=== PATIENT | female | born 1955 | race Caucasian/White ===

== ENCOUNTER 2018-04-05 11:47 | Emergency (ER) | payer OTHER ==
[~2018-04-05] VITALS: Ht 162.6 cm; Wt 43.1 kg
[~2018-04-05 11:47] MED LIST: ALBU90I; AMOX500 PO
[2018-04-05] MEDS ORDERED: Prinivil10 MG PO (14:13)
[2018-04-05] MEDS ORDERED: Percocet 5-3251 EACH PO (14:13)
== END 2018-04-05 14:19 | disposition home or self-care (01) ==
LOC: ER 11:47
DX: S22.41XA Multiple fractures of ribs, right side, initial encounter for closed fracture (principal); Z88.5 Allergy status to narcotic agent; F17.200 Nicotine dependence, unspecified, uncomplicated; W10.9XXA Fall (on) (from) unspecified stairs and steps, initial encounter
CPT/HCPCS: 71101; 99283-25

== ENCOUNTER 2019-01-28 13:14 | Observation (INO) | payer OTHER ==
[~2019-01-28] VITALS: Ht 165.1 cm; Wt 40.2 kg
[~2019-01-28 13:14] MED LIST changes: +Percocet 5-3251 EACH PO; +Prinivil10 MG PO
[2019-01-28] MEDS ORDERED: ATOR20 PO (13:40)
[2019-01-28] MEDS ORDERED: LOSARTAN POTAS100 MG PO (13:40)
[2019-01-28] MEDS ORDERED: AMLO10 PO (13:41)
[2019-01-28] MEDS ORDERED: Bisoprolol Fuma10 MG PO (13:41)
[2019-01-28 13:57] LABS: BASOPHILS ABSOLUTE AUTO 0.05 K/mm3 (0.00-0.23); BASOPHILS PERCENT AUTO 1 % (0-2); EOSINOPHILS ABSOLUTE AUTO 0.03 K/mm3 (0.00-0.68); EOSINOPHILS PERCENT AUTO 1 % (0-6); Hematocrit 46.3 % (33.0-51.0); Hemoglobin 16.3 g/dL (11.5-16.0); IMMATURE GRAN ABSOLUTE AUTO 0.01 K/mm3 (0.00-0.10); IMMATURE GRAN PERCENT AUTO 0 % (0-1); LYMPHOCYTES ABSOLUTE AUTO 1.04 K/mm3 (0.84-5.20); LYMPHOCYTES PERCENT AUTO 19 % (21-46); MONOCYTES PERCENT AUTO 9 % (4-13); Mean Corpuscular HGB Conc 35.2 g/dL (31.5-36.5); Mean Corpuscular Volume 91 fL (80-100); Mean Platelet Volume 9.9 fL (9.1-12.4); NEUTROPHILS PERCENT AUTO 71 % (41-73); Platelet Count 180 K/mm3 (150-400); RDW Coefficient Variation 11.9 % (11.7-14.2); RDW Standard Deviation 39.8 fL (35.1-46.3); White Blood Cell Count 5.53 K/mm3 (4.00-11.30)
[2019-01-28 14:18] LABS: Alanine Aminotransfer (ALT/SGP 62 U/L (12-78); Albumin, Blood 4.4 g/dL (3.4-5.0); Albumin/Globulin Ratio 1.2 (0.8-1.8); Alk Phos 96 U/L (50-136); Anion Gap 9 mmol/L (6-16); Aspartate Aminotrans (AST/SGOT 43 U/L (12-37); Bilirubin, Total 0.7 mg/dL (0.1-1.0); Blood Urea Nitrogen 7 mg/dL (8-24); Bun/Creatinine Ratio 13.6 (12.0-20.0); CO2, Blood 24 mmol/L (21-32); Calcium, Blood 9.2 mg/dL (8.5-10.1); Chloride, Blood 92 mmol/L (98-108); Creatinine, Blood 0.52 mg/dL (0.40-1.00); Globulin, Blood 3.7 g/dL (2.2-4.0); Glomerular Filtration Rate >60 (60-); Glucose, Blood 128 mg/dL (70-99); Sodium, Blood 125 mmol/L (136-145); Total Protein, Blood 8.1 g/dL (6.4-8.2)
[2019-01-28 15:15] LABS: International Normalized Ratio 0.99; Prothrombin Time Results 10.5 Sec (9.7-11.5)
--- NOTE | 2019-01-28 18:47 | NUR ---
PT AOX4 AND COOPERATIVE OF CARE. PT SETTLED INTO ROOM HEPRIN RUNNING ON PUMP. CALL LIGHT WITHIN REACH. PT ABLE TO CALL APPROPRIATELY. WILL CONTINUE TO MONITOR.
--- NOTE | 2019-01-28 23:21 | NUR ---
cH PTT: 126.0, HEPARIN MANAGE BY PHARMACY. ESTEBAN REPORTS TO STOP HEPARIN INFUSION FOR ONE HR. WILL CONTINUE TO MONITOR. LAB REDRAW AT THAT TIME.
[2019-01-29 00:50] LABS: Anion Gap 10 mmol/L (6-16); Blood Urea Nitrogen 7 mg/dL (8-24); Bun/Creatinine Ratio 15.6 (12.0-20.0); CO2, Blood 23 mmol/L (21-32); Calcium, Blood 8.8 mg/dL (8.5-10.1); Chloride, Blood 95 mmol/L (98-108); Creatinine, Blood 0.45 mg/dL (0.40-1.00); Glomerular Filtration Rate >60 (60-); Glucose, Blood 84 mg/dL (70-99); Potassium, Blood 3.7 mmol/L (3.5-5.5); Sodium, Blood 128 mmol/L (136-145)
--- NOTE | 2019-01-29 03:33 | NUR ---
HEPARIN RESTARTED PER PHARMACY.
--- NOTE | 2019-01-29 03:33 | NUR ---
SHIFT SUMMARY PATIENT HAD NO ACUTE CHANGES OBSERVED THIS SHIFT. AXO X3 AND SBA TO BR. NPO AFTER MIDNIGHT. PIV REMAINS INTACT. HEPARIN MANAGED BY PHARMACY. NS INFUSING AT 125mL/HR. EQUIPMENT SERVICE ENGINEER REPORTS NSR 62 WITH CHRIS AT TIMES INTO THE 50'S. PATIENT IRRITABLE BEGINNING OF SHIFT WITH MEDICAL INTERVENTIONS DISRUPTING HER SLEEP. PATIENT EDUCATED AND MORE ACCEPTING. CALL LIGHT IN REACH. BED IN LOWEST POSITION. WILL CONTINUE TO MONITOR UNTIL DAY SHIFT NURSE ASSUMES CARE.
--- NOTE | 2019-01-29 15:57 | NUR ---
patient transfered to heart center patient transfered to heart center for vascular procedure. patient to transfer to pcu after procedure.
--- NOTE | 2019-01-29 17:15 | NUR ---
INITIAL ASSESSMENT PATIENT ARRIVED FROM DOMESTIC HOUSEKEEPER AT 1705. PATIENT ALERT AND ORIENTED, HOWEVER LETHARGIC AND FORGETFUL AT TIMES. PATIENT STATES SHE HAS CHRONIC N/T IN ALL EXTREMITIES. PATIENT AFEBRILE. PATIENT DENIES PAIN AT THIS TIME. PATIENT SATTING 90% AND GREATER ON RA. LUNGS CLEAR T/O. PATIENT IN SB, HR 40S TO 50S. BP STABLE. TIBIAL PULSES 1+ IN STRENGTH, 2+ D.PEDIS. GI WNL. WNL. R 5TH TOE PURPLE IN COLOR. ANGIOSEAL TO DOMESTIC HOUSEKEEPER ACCESS SITE ON L FEMORAL. SITE WNL- NO BLEEDING, BRUISING, HEMATOMA NOTED. SITE SOFT TO PALPATION. BED LOW, CALL LIGHT IN REACH. PATIENT ORIENTED TO UNIT, ROOM AND CALL SYSTEM. WILL CONTINUE TO MONITOR PATIENT FREQUENTLY THROUGHOUT SHIFT.
[2019-01-29] MEDS ORDERED: Nicoderm Cq1 EAC1 TOP (18:48)
[2019-01-29] MEDS ORDERED: CLOP75 PO (19:00)
--- NOTE | 2019-01-29 19:16 | NUR ---
SHIFT SUMMARY PATIENT SLEPT MOST OF THE TIME AFTER ARRIVING FROM PERSONAL CARE WORKER. PATIENT REMAINS ALERT AND ORIENTED, LETHARGIC AND FORGETFUL AT TIMES. PATIENT AFEBRILE. PATIENT HAS NOT HAD ANY COMPLAINTS OF PAIN. PATIENT HAS REMAINED SATTING WELL ON RA. PATIENT HAS REMAINED IN SB, HR 40S TO 50S. BP STABLE. NO VOID AND NO BM SINCE ARRIVING TO UNIT. R PINKY TOE REMAINS PURPLE. PULSES UNCHANGED IN LOWER EXTREMITIES. LEFT FEMORAL PERSONAL CARE WORKER ACCESS SITE REMAINS WNL- NO BLEEDING, BRUISING, HEMATOMA NOTED. SITE SOFT TO PALPATION. NO OTHER ACUTE CHANGES TO NOTE ON. BED LOW, CALL LIGHT IN REACH. REPORT HAS BEEN GIVEN TO ASSUMING NURSE, CASSIDY FLORES.
--- NOTE | 2019-01-29 19:43 | NUR ---
[place] of Care: Care assumed at 1900hr. Patient alert and oriented, lying flat in bed. Denies pain, discomfort, SOB, or dyspnea, VSS. HOB elevated to 30 degrees. Arterial access site to lt groin wnl, no s/s of bleeding/hematoma. Purple discoloration to rt 5th toe, day shift RN notes improvement is discoloration, capillary refill to purple discoloration slightly delayed, approx 4 seconds. Peripheral pulses positive, wnl. Patient denies numbness/tingling to extremities. Plan to begin ambulating patient at approx 2000hr. Will d/c patient to home with family if groin site, VS remain stable after ambulation, per Dr. Nunn orders. Call light in reach, makes needs known.
--- NOTE | 2019-01-29 21:15 | NUR ---
Discharge; Patient discharged home with her son Donaldo, at this time. Lt groin access site remains wnl, no s/s of bleeding or hematoma noted. Site accessed multiple times after ambulation in x2-3 in room. Bilateral lower extremities remain wnl. Discharge instructions given to patient and patient's son, including care for groin site, medications, and follow up appointments. Understanding of instructions expressed by both patient and her son. Belongings sent home with patient. Transferred to patient's son's car via wheelchair by this nurse without difficulty.
== END 2019-01-29 21:10 | disposition home or self-care (01) ==
LOC: ER 13:14 → MEDS 13:15 → ICUW 01-29 17:05
PROVIDERS: Emergency Medicine; Physician Assistant; ADMIT Internal Medicine
PROC: 047C3DZ Dilation of Right Common Iliac Artery with Intraluminal Device, Percutaneous Approach (ICD-10-PCS; principal; 2019-01-29)
DX: I70.201 Unspecified atherosclerosis of native arteries of extremities, right leg (principal); I70.1 Atherosclerosis of renal artery; R23.0 Cyanosis; I77.9 Disorder of arteries and arterioles, unspecified; E87.1 Hypo-osmolality and hyponatremia; I10 Essential (primary) hypertension; F10.20 Alcohol dependence, uncomplicated; F17.210 Nicotine dependence, cigarettes, uncomplicated; Z79.899 Other long term (current) drug therapy; Z88.6 Allergy status to analgesic agent; Z88.5 Allergy status to narcotic agent
CPT/HCPCS: 36415; 37221; 75625; 75716; 80048; 80053; 83605; 85025; 85610; 85730; 93926; 96361; 99152; 99153; 99284-25; C1760; C1769; C1876; C1887; C1894; G0378; J1200; J1644; J2060; J2250; J3010; J7030; Q9967

== ENCOUNTER 2023-03-27 11:11 | Day surgery (SDC) | payer OTHER ==
[~2023-03-27] VITALS: Ht 162.6 cm; Wt 42.0 kg
[~2023-03-27 11:11] MED LIST changes: +AMLO10 PO; +ATOR80 PO; +Bisoprolol Fuma10 MG PO; +CLOP75 PO; +LOSARTAN POTAS100 MG PO; +MULVITA PO; +Nicoderm Cq1 EAC1 TOP
[2023-03-27 12:22] VITALS: BP 138/87
[2023-03-27 14:26] VITALS: BP 118/78
[2023-03-27 14:30] VITALS: BP 114/71
[2023-03-27 14:45] VITALS: BP 102/61
[2023-03-27 15:00] VITALS: BP 104/57
--- NOTE | 2023-03-27 16:10 | NUR ---
PT VERBALIZE D/C INSTRUCTIONS. DENIES QUESTIONS. PT DRESSES SELF WITHOUT DIFFICULTY. R FEMORAL SITE REMAINS STABLE, SOFT NON CIGARETTE BOOK MAKER, NO BLEEDING OR HEMATOMA NOTED. VSS. IV D/C CATH INTACT. PRESSURE DRESSING APPLIED. PT TO HOME VIA S/O WITH W/C.
[2023-03-27 16:13] VITALS: BP 107/90
== END 2023-03-27 23:21 | disposition home or self-care (01) ==
LOC: MHTC 11:11
DX: I73.9 Peripheral vascular disease, unspecified (principal); I10 Essential (primary) hypertension; F17.210 Nicotine dependence, cigarettes, uncomplicated; Z88.5 Allergy status to narcotic agent
CPT/HCPCS: 37225; 37252; 75625; 75716; 75774; 76937; 85347; 99152; 99153; C1714; C1753; C1760; C1769; C1887; C1894; C2623; J1644; J2250; J3010; J7030; J7050; Q9967